=== PATIENT | female | born 1995 | race Hispanic/Latino ===

== ENCOUNTER 2024-03-21 05:22 | Emergency (ER) | payer SELFPAY ==
[~2024-03-21] VITALS: Ht 149.9 cm; Wt 65.8 kg
[2024-03-21 05:40] LABS: APPEARANCE,URINE CLOUDY (CLEAR); BILIRUBIN,URINE NEGATIVE (NEGATIVE); COLOR,URINE YELLOW (YELLOW); GLUCOSE, URINE (UA) NEGATIVE (NEGATIVE); KETONES,URINE 5 mg/dL (NEGATIVE); LEUKOCYTE ESTERASE ,URINE 250 Leu/uL (NEGATIVE); NITRATE,URINE NEGATIVE (NEGATIVE); OCCULT BLOOD,URINE NEGATIVE (NEGATIVE); PH,URINE 5.5 (5.0-8.0); PROTEIN,URINE 20 mg/dL (NEGATIVE); UROBILINOGEN,URINE 3 mg/dL (0.2-1.0)
[2024-03-21 05:47] LABS: ADD UA MICROSCOPIC YES
[2024-03-21 05:50] LABS: BACTERIA,URINE FEW /HPF (None Seen); MUCUS,URINE MOD LPF (None Seen); SQUAMOUS EPITHELIAL CELL,UR FEW /HPF (0-2); WBC,URINE 26-50 /HPF (0-1)
[2024-03-21] MEDS: FAMOTIDINE 20MG VIAL IV ONE (05:50)
[2024-03-21] MEDS: ondanSETRON 4MG INJ IVP ONE (05:50)
[2024-03-21] MEDS: morPHINE 2 MG SYG IVP ONE (05:50)
[2024-03-21 05:53] LABS: BASOPHILS # (AUTO) 0.02 K/uL (0.00-0.20); BASOPHILS % (AUTO) 0.3 % (0.0-5.0); EOSINOPHILS # (AUTO) 0.09 K/uL (0.00-0.70); EOSINOPHILS % (AUTO) 1.5 % (0.0-8.0); HEMATOCRIT 41.4 % (36-48); IMMATURE GRANULOCYTE ABSOLUTE 0.02 K/uL (0-1); LYMPHOCYTES # (AUTO) 1.6 K/uL (1.0-4.8); LYMPHOCYTES % (AUTO) 27.2 % (21.0-51.0); MEAN CORPUSCULAR HEMOGLOBIN 29.5 pg (27.0-33.0); MEAN CORPUSCULAR HGB CONC 34.8 g/dL (32.0-36.0); MEAN CORPUSCULAR VOLUME 84.8 fL (79-99); MONOCYTES # (AUTO) 0.3 K/uL (0.1-1.0); MONOCYTES % (AUTO) 4.7 % (3.0-13.0); PLATELET COUNT (AUTO) 238 K/uL (130-400); RED BLOOD CELL COUNT(AUTO) 4.88 MIL/uL (4.00-5.50); RED CELL DISTRIBUTION WIDTH 12.8 % (11.0-15.5)
[2024-03-21 06:03] LABS: ALBUMIN 3.8 g/dL (3.5-5.0); BILIRUBIN,TOTAL 0.7 mg/dL (0.2-1.0); CREATININE 0.9 mg/dL (0.5-1.0); POTASSIUM 3.2 mmol/L (3.5-5.1)
[2024-03-21] MEDS: PoTASSium BIcarbonate/CIT AC 25 MEQ TABLET.EFF PO ONE (06:21)
[2024-03-21] MEDS: cefTRIAXone 1G VIAL IVPB ONE (06:21)
[2024-03-21] MEDS ORDERED: ONDA-243 PO (06:40)
[2024-03-21] MEDS ORDERED: OMEP10CA5 PO (06:40)
[2024-03-21] MEDS ORDERED: FAMO-136 PO (06:40)
[2024-03-21] MEDS ORDERED: MACR100 PO (06:42)
--- NOTE | 2024-03-21 06:42 | ERN ---
General Chief Complaint: Abdominal Pain Stated Complaint: EPIGASTRIC PAIN Time Seen by MD: 05:44 Time Seen by Midlevel: 05:44 Source: patient History of Present Illness Initial Comments Patient is a 28-year-old female with a past medical history of gastritis presenting for evaluation of midepigastric abdominal pain. Patient states she has been having this abdominal pain intermittently since August. The pain gets worse with certain foods. Today she reports eating hot Cheetos earlier today and shortly after developed the pain. She has been seen by a doctor in [place] who told her she might have gastritis however no endoscopy has ever been performed. She was started on Bentyl with little to no relief. On arrival she reports mild nausea but denies any episodes of vomiting, fever, chills, diarrhea, or any other symptoms at this time. Allergies: Coded Allergies: No Known Allergies (Unverified Allergy, Unknown, 03/21/24) Home Meds Active Scripts Nitrofurantoin/Nitrofuran Mac (Macrobid) 100 Mg Cap, 1 CAP PO BID for 5 Days, #10 CAP 0 Refills Prov:MARY RODRÍGUEZ 03/21/24 Omeprazole (Omeprazole) 10 Mg Capsule.dr, 1 CAP PO DAILY for 30 Days, #30 CAP 0 Refills Prov:MARY RODRÍGUEZ 03/21/24 Famotidine (Pepcid) 20 Mg Tablet, 1 TAB PO DAILY for 5 Days, #60 TAB 0 Refills Prov:MARY RODRÍGUEZ 03/21/24 Ondansetron (Ondansetron Odt) 4 Mg Tab.rapdis, 4 MG PO BID for 7 Days, #14 TAB Prov:MARY RODRÍGUEZ 03/21/24 Past Medical History Past Medical History: Hypertension, Other Medical History Other: GALLSTONES Past Surgical History: Female( History) LMP: Feb 27, 2024 ROS Dictation CONSTITUTIONAL: Negative except for HPI HEAD/FACE: Negative except for HPI EENT: Negative except for HPI RESPIRATORY: Negative except for HPI GASTROINTESTINAL/ABDOMINAL: Negative except for HPI GENITOURINARY: Negative except for HPI MUSCULOSKELETAL: Negative except for HPI INTEGUMENTARY: Negative except for HPI NEUROLOGICAL/PSYCH: Negative except for HPI HEMATOLOGIC/LYMPHATIC: Negative except for HPI All Systems Negative, Except as noted above. 13 point review of systems assessed and all negative except for above. Physical Exam Physical Exam Dictation Vital Signs reviewed General Appearance: Alert, oriented x 3, no acute distress, well developed, nourished. Head and Face: non-traumatic. Eyes: PERRL, pink conjunctivas, eyelid no trauma, anterior chamber with arcus senilis. Ears: Pinnas intact and no signs of trauma or erythema ear canals clear and no discharge TM no erythema Nose: No discharge, no bleeding. Oropharynx: Mouth normal, tongue pink, pharynx clear,no erythema, tonsils no exudates, no abscesses noted, mucous membrane moist Neck: Supple, non-tender, no thyromegaly, no masses, no JVD, no bruits Breast:Deferred Chest:No tenderness, no crepitus, no paradoxical movement, no retractions Lungs:Clear, well-ventilated, symmetric, no rales, no wheezing, no rhonchi, no stridor, good breath sounds bilaterally Heart: Regular rate, regular rhythm, no murmur, no gallops Vascular: no peripheral edema, Abdomen: Soft, positive bowel sounds, nondistended, no guarding, nontender, no rebound, no masses no hepatomegaly, no splenomegaly, no Thompson's sign, no hernias. Rectal: Deferred Genital: Deferred Neurological: Normal speech, motor function intact, sensory function intact Musculoskeletal: Neck nontender, full range of motion, back nontender, full range of motion, Extremities: nontender, full range of motion Skin: Color pink, dry, no turgor, no rash, no lacerations, no abrasions, no contusions. Lymphatic: Deferred Results Laboratory and Microbiology Lab and Micro Result Laboratory Tests Test 03/21/24 05:31 03/21/24 05:41 Urine Color YELLOW (YELLOW) Urine Appearance CLOUDY (CLEAR) H Urine pH 5.5 (5.0-8.0) Urine Specific Beaver 1.027 (1.001-1.031) Urine Protein 20 mg/dL (NEGATIVE) H Urine Glucose (UA) NEGATIVE mg/dL (NEGATIVE) Urine Ketones 5 mg/dL (NEGATIVE) H Urine Occult Blood NEGATIVE (NEGATIVE) Urine Nitrate NEGATIVE (NEGATIVE) Urine Bilirubin NEGATIVE mg/dL (NEGATIVE) Urine Urobilinogen 3 mg/dL (0.2-1.0) H Urine Leukocyte Esterase 250 Waldemar/uL (NEGATIVE) H Urine RBC 2-5 /HPF (0-1) H Urine WBC 26-50 /HPF (0-1) H Urine Squamous Epithelial Cells FEW /HPF (0-2) Urine Bacteria FEW /HPF (None Seen) Urine HCG, Qualitative NEGATIVE (NEGATIVE) White Blood Count 6.0 K/uL (4.8-10.8) Red Blood Count 4.88 MIL/uL (4.00-5.50) Hemoglobin 14.4 g/dL (12.0-16.0) Hematocrit 41.4 % (36-48) Mean Corpuscular Volume 84.8 fL (79-99) Mean Corpuscular Hemoglobin 29.5 pg (27.0-33.0) Mean Corpuscular Hemoglobin Concent 34.8 g/dL (32.0-36.0) Red Cell Distribution Width 12.8 % (11.0-15.5) Platelet Count 238 K/uL (130-400) Mean Platelet Volume 10.2 fL (7.5-10.5) Immature Granulocyte % (Auto) 0.3 % (0-1) Neutrophils (%) (Auto) 66.0 % (40.0-77.0) Lymphocytes (%) (Auto) 27.2 % (21.0-51.0) Monocytes (%) (Auto) 4.7 % (3.0-13.0) Eosinophils (%) (Auto) 1.5 % (0.0-8.0) Basophils (%) (Auto) 0.3 % (0.0-5.0) Neutrophils # (Auto) 4.0 K/uL (1.8-7.7) Lymphocytes # (Auto) 1.6 K/uL (1.0-4.8) Monocytes # (Auto) 0.3 K/uL (0.1-1.0) Eosinophils # (Auto) 0.09 K/uL (0.00-0.70) Basophils # (Auto) 0.02 K/uL (0.00-0.20) Absolute Immature Granulocyte (auto 0.02 K/uL (0-1) Nucleated Red Blood Cells 0.0 % (0.0-0.19) Sodium Level 140 mmol/L (136-145) Potassium Level 3.2 mmol/L (3.5-5.1) L Chloride Level 104 mmol/L (101-111) Carbon Dioxide Level 28 mmol/L (21-32) Blood Urea Nitrogen 9 mg/dL (7-18) Creatinine 0.9 mg/dL (0.5-1.0) Glomerular Filtration Rate Calc 90 mL/min (>90) Random Glucose 115 mg/dL (70-105) H Total Calcium 9.0 mg/dL (8.5-10.1) Total Bilirubin 0.7 mg/dL (0.2-1.0) Aspartate Amino Transf (AST/SGOT) 27 U/L (10-37) Alanine Aminotransferase (ALT/SGPT) 16 U/L (12-78) Alkaline Phosphatase 62 U/L (50-136) Total Protein 7.0 g/dL (6.0-8.3) Albumin 3.8 g/dL (3.5-5.0) Amylase Level 51 U/L (25-115) # Lipase 68 U/L (16-77) Labs Reviewed?: Yes MDM MDM: Patient is a 28-year-old female with a past medical history of gastritis presenting for evaluation of midepigastric abdominal pain. Patient states she has been having this abdominal pain intermittently since August. The pain gets worse with certain foods. Today she reports eating hot Cheetos earlier today an d shortly after developed the pain. She has been seen by a doctor in [place] who told her she might have gastritis however no endoscopy has ever been performed. She was started on Bentyl with little to no relief. On arrival she reports mild nausea but denies any episodes of vomiting, fever, chills, diarrhea, or any other symptoms at this time. On physical examination patient has midepigastric abdominal tenderness with no rebound or guarding. Her CBC shows no leukocytosis. Her hemoglobin is stable. Her platelets are normal. Her chemistries are unremarkable her liver function tests are normal. Her bilirubin is normal. Her lipase is normal. There was no evidence of pancreatitis or acute cholecystitis at this time. Symptoms are most likely related to gastritis. Her urine shows evidence of a urinary tract infection. Patient was given 1 g of Rocephin IV and will be discharged home with a prescription for Macrobid. She was given one dose of morphine, Zofran, and Pepcid. On repeat evaluation patient states her symptoms have completely resolved. She was advised to follow up with the care aid for possible outpatient en doscopy. Differential diagnosis: Gastritis, pancreatitis, cholecystitis There are no social concerns with this patient. Prescription drug management Prescriptions will include: Zofran, Pepcid, omeprazole, Macrobid Medical management and examination interpretation discussions were had by me with other qualified healthcare professionals as indicated for the patient's care. ED Course Orders Procedure Category Date Status Time Vital Signs Per CPOE 03/21/24 Transmitted Routine 05:31 Saline Lock Iv CPOE 03/21/24 Transmitted 05:31 Cbc With Differential LAB 03/21/24 Complete 05:31 Comprehensive LAB 03/21/24 Complete Metabolic Panel 05:31 Lipase LAB 03/21/24 Complete 05:31 Amylase LAB 03/21/24 Complete 05:31 Urinalysis Profile LAB 03/21/24 Complete 05:31 ,Urine Test LAB 03/21/24 Complete 05:32 Ondansetron 4mg Inj PHA 03/21/24 Complete (Zofran 4mg Inj) 06:00 Famotidine 20mg Vial PHA 03/21/24 Complete (Pepcid 20mg Vial) 06:00 Morphine 2mg Syg PHA 03/21/24 Complete (Morphine 2mg Syg) 06:00 Culture Urine TIN 03/21/24 In Process 05:47 Potassium Bicarb/Cit PHA 03/21/24 Complete Ac 25meq (K-Lyte Ta 06:30 Ceftriaxone 1g Vial PHA 03/21/24 Complete (Rocephine 1g Inj) 06:30 Current Medications Medications (Trade) Dose Ordered Sig/Trish Route PRN Reason Start Time Stop Time Status Last Admin Dose Admin Ceftriaxone Sodium (ROCEphine 1G INJ) 1 gm ONCE ONCE IVPB 03/21/24 06:30 03/21/24 06:31 DC 03/21/24 06:21 Famotidine (Pepcid 20mg Vial) 20 mg ONCE ONCE IV 03/21/24 06:00 03/21/24 06:01 DC 03/21/24 05:50 Morphine Sulfate (morPHINE 2MG SYG) 2 mg ONCE ONCE IVP 03/21/24 06:00 03/21/24 06:01 DC 03/21/24 05:50 Ondansetron HCl (zoFRAN 4MG INJ) 4 mg ONCE ONCE IVP 03/21/24 06:00 03/21/24 06:01 DC 03/21/24 05:50 Potassium Bicarbonate (K-Lyte Tablet Eff 25 Meq Tablet.eff) 25 meq ONCE ONCE PO 03/21/24 06:30 03/21/24 06:31 DC 03/21/24 06:21 Vital Signs Date Time Temp Pulse Resp B/P (MAP) Pulse Ox O2 Delivery O2 Flow Rate FiO2 03/21/24 06:02 62 18 142/79 98 Room Air* 0 21 03/21/24 05:23 96.3 71 20 139/76 100 Room Air DX & DISP Disposition: Discharge Departure Impression: Primary Impression: Gastritis Additional Impressions: Urinary tract infection, Hypokalemia Condition: Stable Scripts Nitrofurantoin/Nitrofuran Mac (Macrobid) 100 Mg Cap 1 CAP PO BID for 5 Days, #10 CAP 0 Refills Prov: MARY RODRÍGUEZ 03/21/24 Omeprazole (Omeprazole) 10 Mg Capsule.dr 1 CAP PO DAILY for 30 Days, #30 CAP 0 Refills Prov: MARY RODRÍGUEZ 03/21/24 Famotidine (Pepcid) 20 Mg Tablet 1 TAB PO DAILY for 5 Days, #60 TAB 0 Refills Prov: MARY RODRÍGUEZ 03/21/24 Ondansetron (Ondansetron Odt) 4 Mg Tab.rapdis 4 MG PO BID for 7 Days, #14 TAB Prov: MARY RODRÍGUEZ 03/21/24 Additional Instructions: Your blood work today shows a low potassium however, the remainder of your blood work is unremarkable. Your urinalysis is consistent with infection. You were given 1 g of ceftriaxone in the emergency department and will be discharged home with a prescription for Macrobid. It seems your symptoms are consistent with gastritis. You will need to follow up with the care aid for possible outpatient endoscopy. If you develop any new or worsening symptoms please report to the ER for further evaluation. Referrals: ESEQUIEL CHANDLER NP (PCP) VERO PHAN MD Time of Disposition: 06:39 I have reviewed the case, and I agree with, Diagnosis and Plan I performed the substantive portion of the visit. I have reviewed and personally made and approve the management plan that is documented in the note by myself or the DAISY. I acknowledge for responsibility for the patient's management plan. MARY RODRÍGUEZ Mar 21, 2024 06:42
[2024-03-21 06:44] VITALS: BP 142/79; PULSE 64; RESP 18; TEMP 98.3; O2SAT 98
[2024-03-24] MEDS ORDERED: NITR100C4 PO (08:44)
== END 2024-03-21 06:54 | disposition home or self-care (01) ==
LOC: EDH 05:22
DX: K29.70 Gastritis, unspecified, without bleeding (principal); N39.0 Urinary tract infection, site not specified; E87.6 Hypokalemia; I10 Essential (primary) hypertension; Z79.899 Other long term (current) drug therapy
CPT/HCPCS: 99284; 96374; 96375; 82150; 80053; 83690; 85025; 87086 ×2; 87186; 81001; 81025; 36415; J3490; J2270; J0696; J2405

== ENCOUNTER 2024-05-28 11:43 | Emergency (ER) | payer SELFPAY ==
[~2024-05-28] VITALS: Ht 149.9 cm; Wt 74.8 kg
[~2024-05-28 11:43] MED LIST: FAMO-136 PO; MACR100 PO; NITR100C4 PO; OMEP10CA5 PO; ONDA-243 PO
[2024-05-28 11:57] VITALS: BP 125/75; PULSE 85; RESP 16; TEMP 98.8; O2SAT 98
[2024-05-28] MEDS ORDERED: ondanSETRON 4MG INJ IVP ONE (12:00)
[2024-05-28] MEDS ORDERED: PANTOPrazole 40 MG/VIAL IVP ONE (12:00)
[2024-05-28] MEDS ORDERED: LIDOCAINE HCL 2% VISCOUS 15 ML UDCUP PO ONE (12:00)
[2024-05-28] MEDS ORDERED: MAG/ALUM/SIMETH 30 ML UDCUP PO ONE (12:00)
--- NOTE | 2024-05-28 12:13 | ERN ---
General Chief Complaint: Abdominal Pain Stated Complaint: SOB Time Seen by MD: 11:46 Time Seen by Midlevel: 11:46 Source: patient History of Present Illness Initial Comments Patient is a 28-year-old female with a past medical history of gastritis and gastroesophageal reflux disease presenting to the emergency department with midsternal chest pain. Patient believes that her symptoms are most likely related to gastritis. She states her symptoms started after eating a large tortilla. She has been told in the past that she was unable to eat this type of food because usually flares up her gastritis. She states her pain starts in the midepigastric region and radiates up to the midsternal area. Denies any nausea, vomiting, shortness of breath, or any other symptoms at this time. Allergies: Coded Allergies: No Known Allergies (Unverified Allergy, Unknown, 03/21/24) Home Meds Active Scripts Nitrofurantoin Monohyd/M-Cryst (Macrobid 100 mg Capsule) 100 Mg Capsule, 1 CAP PO BID for 5 Days, #10 CAP 0 Refills Prov:HOMA LOMAS DO 03/24/24 Nitrofurantoin/Nitrofuran Mac (Macrobid) 100 Mg Cap, 1 CAP PO BID for 5 Days, #10 CAP 0 Refills Prov:MARY RODRÍGUEZ 03/21/24 Omeprazole (Omeprazole) 10 Mg Capsule.dr, 1 CAP PO DAILY for 30 Days, #30 CAP 0 Refills Prov:MARY RODRÍGUEZ 03/21/24 Famotidine (Pepcid) 20 Mg Tablet, 1 TAB PO DAILY for 5 Days, #60 TAB 0 Refills Prov:MARY RODRÍGUEZ 03/21/24 Ondansetron (Ondansetron Odt) 4 Mg Tab.rapdis, 4 MG PO BID for 7 Days, #14 TAB Prov:MARY RODRÍGUEZ 03/21/24 Past Medical History Past Medical History: Hypertension, Other Medical History Other: GALLSTONES,HYPOKALEMIA Past Surgical History: Female( History) LMP: May 02, 2024 : 3 Para: 3 Aborts: 0 ROS Dictation CONSTITUTIONAL: Negative except for HPI HEAD/FACE: Negative except for HPI EENT: Negative except for HPI RESPIRATORY: Negative except for HPI GASTROINTESTINAL/ABDOMINAL: Negative except for HPI GENITOURINARY: Negative except for HPI MUSCULOSKELETAL: Negative except for HPI INTEGUMENTARY: Negative except for HPI NEUROLOGICAL/PSYCH: Negative except for HPI HEMATOLOGIC/LYMPHATIC: Negative except for HPI All Systems Negative, Except as noted above. 13 point review of systems assessed and all negative except for above. Physical Exam Physical Exam Dictation Vital Signs reviewed General Appearance: Alert, oriented x 3, no acute distress, well developed, nourished. Head and Face: non-traumatic. Eyes: PERRL, pink conjunctivas, eyelid no trauma, anterior chamber with arcus senilis. Ears: Pinnas intact and no signs of trauma or erythema ear canals clear and no discharge TM no erythema Nose: No discharge, no bleeding. Oropharynx: Mouth normal, tongue pink, pharynx clear,no erythema, tonsils no exudates, no abscesses noted, mucous membrane moist Neck: Supple, non-tender, no thyromegaly, no masses, no JVD, no bruits Breast:Deferred Chest:No tenderness, no crepitus, no paradoxical movement, no retractions Lungs:Clear, well-ventilated, symmetric, no rales, no wheezing, no rhonchi, no stridor, good breath sounds bilaterally Heart: Regular rate, regular rhythm, no murmur, no gallops Vascular: no peripheral edema, Abdomen: Soft, positive bowel sounds, nondistended, no guarding, nontender, no rebound, no masses no hepatomegaly, no splenomegaly, no Thompson's sign, no hernias. Rectal: Deferred Genital: Deferred Neurological: Normal speech, motor function intact, sensory function intact Musculoskeletal: Neck nontender, full range of motion, back nontender, full range of motion, Extremities: nontender, full range of motion Skin: Color pink, dry, no turgor, no rash, no lacerations, no abrasions, no contusions. Lymphatic: Deferred MDM MDM: Patient verbalize to patient critical care unit manager who said that she would like to leave. Patient refused to see nursing for additional information. Differential diagnosis: ACS, gastritis, pancreatitis, acute cholecystitis ED Course Orders Procedure Category Date Status Time 12 Lead Ekg Tracing- EKG 05/28/24 Logged Technical 11:55 Pantoprazole 40mg Inj PHA 05/28/24 Complete (Protonix 40mg Inj 12:00 Ondansetron 4mg Inj PHA 05/28/24 Complete (Zofran 4mg Inj) 12:00 Lidocaine Hcl 2% PHA 05/28/24 Complete Viscous (Lidocaine Hcl 12:00 Mag/Alum/Simeth 30ml PHA 05/28/24 Complete (Maalox Plus 30ml) 12:00 Current Medications Medications (Trade) Dose Ordered Sig/Trish Route PRN Reason Start Time Stop Time Status Last Admin Dose Admin Al Hydroxide/Mg Hydroxide (MAALox PLUS 30ML) 30 ml ONCE ONCE PO 05/28/24 12:00 05/28/24 12:01 DC Lidocaine HCl (Lidocaine HCl 2% Viscous) 10 ml ONCE ONCE PO 05/28/24 12:00 05/28/24 12:01 DC Ondansetron HCl (zoFRAN 4MG INJ) 4 mg ONCE ONCE IVP 05/28/24 12:00 05/28/24 12:01 DC Pantoprazole Sodium (PROTonix 40MG INJ) 40 mg ONCE ONCE IVP 05/28/24 12:00 05/28/24 12:01 DC Vital Signs Date Time Temp Pulse Resp B/P (MAP) Pulse Ox O2 Delivery O2 Flow Rate FiO2 05/28/24 11:57 98.8 85 16 125/75 98 Room Air* 0 21 05/28/24 11:57 98.8 85 16 125/75 98 Room Air 0 DX & DISP Disposition: AMA Departure Impression: Primary Impression: Left against medical advice Condition: Stable Referrals: LENI CENTENO (PCP) I have reviewed the case, and I agree with, Diagnosis and Plan I performed the substantive portion of the visit. I have reviewed and personally made and approve the management plan that is documented in the note by myself or the DAISY. I acknowledge for responsibility for the patient's management plan. MARY RODRÍGUEZ May 28, 2024 12:13
== END 2024-05-28 12:33 | disposition left against medical advice (07) ==
LOC: EDH 11:43
DX: R07.2 Precordial pain (principal); K21.9 Gastro-esophageal reflux disease without esophagitis; I10 Essential (primary) hypertension; Z79.899 Other long term (current) drug therapy; Z98.890 Other specified postprocedural states
CPT/HCPCS: 99281